=== PATIENT | male | born 1985 | race Caucasian/White ===

== ENCOUNTER 2024-03-20 16:37 | Outpatient (OUT) | payer OTHER, SELFPAY ==
[2024-03-20 16:52] LABS: Basophils Percent Auto 0.3 % (0.2-2.0); Eosinophils Absolute Auto 0.2 10^3/uL (0.0-0.7); Eosinophils Percent Auto 2.8 % (0.9-7.0); Hematocrit 46.2 % (42.0-54.0); Hemoglobin 15.7 g/dL (14.0-18.0); Immature Granulocytes Abs Auto 0.03 10^3/uL (0.00-0.03); Immature Granulocytes Pct Auto 0.5 % (0.0-0.5); Lymphocytes Absolute Auto 2.4 10^3/uL (1.2-3.8); Lymphocytes Percent Auto 39.7 % (20.5-60.0); Mean Corpuscular Hemoglobin 30.1 pg (25.9-34.0); Mean Corpuscular Volume 88.7 fL (80.0-94.0); Mean Platelet Volume 10.2 fL (9.5-13.5); Monocytes Absolute Auto 0.5 10^3/uL (0.3-0.8); Monocytes Percent Auto 8.3 % (1.7-12.0); Neutrophils Absolute Auto 2.9 10^3/uL (1.4-6.5); Neutrophils Percent Auto 48.4 % (43.0-75.0); Platelet Count 218 10^3/uL (150-450); Red Blood Count 5.21 10^6/uL (4.70-6.10); Red Cell Distribution Width 12.6 % (11.0-15.0)
[2024-03-20 17:23] LABS: Estimated Average Glucose 105 mg/dL; Glycohemoglobin A1C 5.3 % (4.5-6.2)
[2024-03-20 18:04] LABS: Alanine Aminotransferase 60 U/L (16-63); Albumin Globulin Ratio 1.1; Albumin Level 4.1 g/dL (3.4-5.0); Alkaline Phosphatase 87 U/L (46-116); Anion Gap 12.2; Aspartate Amino Transferase 31 U/L (15-37); BUN Creatinine Ratio 13.3; Bilirubin Total 0.5 mg/dL (0.2-1.0); Calcium 9.3 mg/dL (8.5-10.1); Carbon Dioxide 31.2 mmol/L (21.0-32.0); Chloride 102 mmol/L (98-107); Chol HDL Ratio 2.9; Cholesterol 187 mg/dL (<=200); Estimated GFR (African America >60 (>=60 mL/min/1.73m^2); Estimated GFR (Non-African Ame >60 (>=60 mL/min/1.73m^2); Globulin 3.6 g/dL; Glucose 83 mg/dL (74-106); HDL Cholesterol 64 mg/dL (40-60); Potassium 4.4 mmol/L (3.5-5.1); Sodium 141 mmol/L (136-145); TSH W/ REFLEX FT4 2.135 uIU/mL (0.358-3.740); Total Protein 7.7 g/dL (6.4-8.2); Triglycerides 46 mg/dL (<=150); VLDL CHOLESTEROL 9.2 mg/dL
== END 2024-03-20 16:38 | disposition home or self-care (01) ==
LOC: LAB 16:37
DX: Z00.00 Encounter for general adult medical examination without abnormal findings (principal)
CPT/HCPCS: 36415; 80053; 80061; 83036; 84443; 85025

== ENCOUNTER 2024-05-26 08:46 | Outpatient (OUT) | payer OTHER, SELFPAY ==
--- OUTSIDE RECORDS SUMMARY | 2024-05-26 09:08 | XMS_ITS | CCD ---
Author Organization [facility] Care Team Providers Care Tobacco Sweeper Name Role Phone Angie Rodriguez Unavailable SHAIKH Umer ZARCO Attending Unavailable SHAIKH Umer ZARCO Primary Care Unavailable SHAIKH Umer ZARCO Admitting Unavailable DR JULIO CESAR GARNER V Consulting Unavailable SHAIKH Umer ZARCO Consulting Unavailable Phill Traylor MD Primary Care Provider Beckford BRAKESHOE REPAIRER, Zuly Unavailable Bettye BRAKESHOE REPAIRER, Mariangel Unavailable Beckford BRAKESHOE REPAIRER, Zuly Unavailable Cathie Higgins DO Unavailable KEV BUI Attending Unavailable BECKFORD, ZULY Referring Unavailabl e BRINKKEV Attending Unavailable BECKFORD, ZULY Referring Unavailabl e BRKEV WELDON Attending Unavailable BECKFORD, ZULY Referring Unavailabl e BRKEV WELDON Attending Unavailable BECKFORD, ZULY Referring Unavailabl e BRKEV WELDON Attending Unavailable BECKFORD, ZULY Referring Unavailabl e BRINKKEV Attending Unavailable BECKFORD, ZULY Referring Unavailabl e CATHIE HIGGINS Attending Unavailable BECKFORD, ZULY Referring Unavailabl e CHITO CALDERON Attending Unavailable BECKFORD, ZULY Referring Unavailabl e BRINK, KEV Attending Unavailable BECKFORD, ZULY Referring Unavailabl e BECKFORD, ZULY Attending Unavailabl e SADIQ TABARES Attending Unavailable BECKFORD, ZULY Referring Unavailabl e Allergies Allergy Classification Reported Allergen(s) Allergy Type Date of Onset Reaction(s) Facility (20 sources) Cefaclor Drug Allergy 5 unknown [facility] Other (20 sources) Amoxicillin Drug Allergy 5 [facility] (20 sources) Azithromycin Drug Allergy 5 [facility] Medications Current Medications Medication Drug Class(es) Dates Sig (Normalized) Sig (Original) [place] (No Known Home Meds) (1 source) Start: 01-18-2024 [place] (No Known Home Meds) Active January 18, 2024 12:00am valACYclovir 1000 mg oral tablet (1 source) Herpesvirus Nucleoside Analog DNA Polymerase Inhibitor, Herpes Simplex Virus Nucleoside Analog DNA Polymerase Inhibitor, Herpes Zoster Virus Nucleoside Analog DNA Polymerase Inhibitor Start: 03-06-2021 take 1 tablet by mouth every twelve hours valACYclovir HCl 1 GM 1 tablet Orally twice a day for 10 day(s) Mar, Active Completed/Discontinued Medications Medication Drug Class(es) Dates Sig (Normalized) Sig (Original) azithromycin 250 mg oral tablet (1 source) Macrolide Antimicrobial Start: 11-03-2023 End: 01-18-2024 Azithromycin 250 mg tablet Discontinued 0 PO .COMPLEX 6 November 02, 2023 11:00pm January 18, 2024 12:01pm For 250 mg dose pack: take 500 mg today (day 1), then 250 mg for 4 days (days 2-5) PO Problems Active Problems Problem Classification Problem Date Documented Da te Episodic/Chronic Chronic obstructive pulmonary disease and bronchiectasis (4 sources) Bronchitis; Translations: [Bronchitis, not specified as acute or chronic] 11-03-2023 Episodic Other lower respiratory disease (20 sources) Apnea; Translations: [Apnea, not elsewhere classified] Onset: 03-13-2024 03-13-2024 Episodic Other lower respiratory disease (2 sources) Snoring; Translations: [Snoring] 05-06-2024 Episodic Other nervous system disorders (2 sources) Circadian rhythm sleep disorder of shift work type; Translations: [Circadian rhythm sleep disorder, shift work type] 05-06-2024 Chronic Other upper respiratory disease (20 sources) Seasonal allergy; Translations: [Other seasonal allergic rhinitis] Onset: 03-13-2024 03-13-2024 Chronic Residual codes; unclassified (4 sources) Obstructive sleep apnea syndrome; Translations: [Obstructive sleep apnea (adult) (pediatric)] 05-06-2024 Chronic Residual codes; unclassified (2 sources) Hypersomnia; Translations: [Hypersomnia, unspecified] 05-06-2024 Chronic Residual codes; unclassified (2 sources) Sleep deprivation; Translations: [Sleep deprivation] 05-06-2024 Episodic Spondylosis; intervertebral disc disorders; other back problems (1 source) Spondylosis without myelopathy or radiculopathy, lumbar region; Translations: [SPONDYLS W/O MYELO-/RADICULOP LUMB] Onset: 07-06-2022 Chronic Spondylosis; intervertebral disc disorders; other back problems (20 sources) Low back pain; Translations: [Lumbar back pain] Onset: 03-13-2024 03-13-2024 Episodic Unclassified (3 sources) LOW BACK PAIN, UNSPECIFIED; Translations: [LOW BACK PAIN, UNSPECIFIED] Onset: 07-06-2022 Viral infection (1 source) Genital herpes simplex; Translations: [Herpesviral infection of urogenital system, unspecified] 01-18-2024 Chronic Past or Other Problems Problem Classification Problem Date Documented Da te Episodic/Chronic Residual codes; unclassified (1 source) High risk heterosexual behavior Onset: 03-06-2021 Resolved: 03-06-2021 Episodic Unclassified (1 source) LOW BACK PAIN, UNSPECIFIED; Translations: [LOW BACK PAIN, UNSPECIFIED] Onset: 06-30-2022 Viral infection (1 source) Herpesviral infection, unspecified Onset: 03-06-2021 Resolved: 03-06-2021 Episodic Results Test Name Value Interpretation Reference Range Facil ity ALL CBC WITH AUTO DIFFon BASOPHILS ABSOLUTE AUTO 0 [facility] Basophils/100 WBC (Bld) 0.3 % 0.2 - 2.0 % [facility] Eosinophils/100 WBC (Bld) 2.8 % 0.9 - 7.0 % [facility] Erythrocyte distribution width (RBC) [Ratio] 12.6 % 11.0 - 15.0 % [facility] Hematocrit (Bld) [Volume fraction] 46.2 % 42.0 - 54.0 % [facility] Hemoglobin (Bld) [Mass/Vol] 15.7 g/dL 14.0 - 18.0 g/dL [facility] IMMATURE GRANULOCYTES ABS AUTO 0.03 [facility] Immature granulocytes/100 WBC (Bld) 0.5 % 0.0 - 0.5 % [facility] LYMPHOCYTES ABSOLUTE AUTO 2.4 [facility] Lymphocytes/100 WBC (Bld) 39.7 % 20.5 - 60.0 % [facility] MCH (RBC) [Entitic mass] 30.1 pg 25.9 - 34.0 pg [facility] MCHC (RBC) [Mass/Vol] 34 g/dL 29.9 - 35.2 g/dL [facility] MCV (RBC) [Entitic vol] 88.7 fL 80.0 - 94.0 fL [facility] MONOCYTES ABSOLUTE AUTO 0.5 [facility] Monocytes/100 WBC (Bld) 8.3 % 1.7 - 12.0 % [facility] NEUTROPHILS ABSOLUTE AUTO 2.9 [facility] Neutrophils/100 WBC (Bld) 48.4 % 43.0 - 75.0 % [facility] Platelet mean volume (Bld) [Entitic vol] 10.2 fL 9.5 - 13.5 fL [facility] TBH EO # 0.2 [facility] TBH PLT 218 [facility] RBC 5.21 [facility] WBC 6 [facility] XR LSPINE 2_3 VIEWSon 2022 XR LSPINE 2_3 VIEWS EXAMINATION: XR LSPINE 2_3 VIEWS HISTORY: Low back pain COMPARISON: No relevant comparison available. FINDINGS: BONES: Mild widespread spondylosis. No visible acute bony abnormality. DISC SPACES: Normal. No significant disc height narrowing, subluxation, or endplate abnormality. PARASPINOUS: Negative. No paraspinous abnormality is seen. OTHER: Moderate stool in the right colon. IMPRESSION: Mild spondylosis Electronically authenticated by: JULIO CESAR GARNER Date: 2022-06-30 11:26 Normal [facility] Vital Signs Date Time Vital Sign Value Performing Clinician Facility 05-06-2024 08:53-0500 Body height 167.6 cm Cathie [employer] Work Phone: [facility] 05-06-2024 08:53-0500 Body mass index (BMI) [Ratio] 25.66 kg/m2 Cathie Sloan DO Work Phone: [facility] 05-06-2024 08:53-0500 Body weight 72.12 kg Cathie Sloan DO Work Phone: [facility] 05-06-2024 08:53-0500 Diastolic blood pressure 86 mm[Hg] Cathie Sloan DO Work Phone: [facility] 05-06-2024 08:53-0500 Systolic blood pressure 128 mm[Hg] Cathie Sloan DO Work Phone: [facility] 03-13-2024 09:20-0500 Body height 167.6 cm Zuly Beckford BRAKESHOE REPAIRER Work Phone: [facility] 03-13-2024 09:20-0500 Body mass index (BMI) [Ratio] 25.34 kg/m2 Zuly Beckford BRAKESHOE REPAIRER Work Phone: [facility] 03-13-2024 09:20-0500 Body temperature 97.11 [degF] Zuly Beckford BRAKESHOE REPAIRER Work Phone: [facility] 03-13-2024 09:20-0500 Body weight 71.22 kg Zuly Beckford BRAKESHOE REPAIRER Work Phone: [facility] 03-13-2024 09:20-0500 Diastolic blood pressure 60 mm[Hg] Zuly Beckford BRAKESHOE REPAIRER Work Phone: [facility] 03-13-2024 09:20-0500 Heart rate 71 /min Zuly Beckford BRAKESHOE REPAIRER Work Phone: [facility] 03-13-2024 09:20-0500 Respiratory rate 18 /min Zuly Beckford BRAKESHOE REPAIRER Work Phone: [facility] 03-13-2024 09:20-0500 SaO2% (BldA) [Mass fraction] 97 % Zuly Beckford BRAKESHOE REPAIRER Work Phone: [facility] 03-13-2024 09:20-0500 Systolic blood pressure 112 mm[Hg] Zuly Beckford BRAKESHOE REPAIRER Work Phone: [facility] 01-18-2024 12:04-0500 Body height 167.64 cm [facility] 01-18-2024 12:04-0500 Body mass index (BMI) [Ratio] 34 kg/m2 [facility] 01-18-2024 12:04-0500 Body temperature 97.6 [degF] [facility] 01-18-2024 12:04-0500 Body weight 95.7 kg [facility] 01-18-2024 12:04-0500 Diastolic blood pressure 53 mm[Hg] [facility] 01-18-2024 12:04-0500 Heart rate 66 /min [facility] 01-18-2024 12:04-0500 Respiratory rate 18 /min [facility] 01-18-2024 12:04-0500 SaO2% (BldA) [Mass fraction] 99 % [facility] 01-18-2024 12:04-0500 Systolic blood pressure 114 mm[Hg] [facility] 11-03-2023 14:45-0400 Body height 167.64 cm [facility] 11-03-2023 14:45-0400 Body mass index (BMI) [Ratio] 25 kg/m2 [facility] 11-03-2023 14:45-0400 Body temperature 97.7 [degF] [facility] 11-03-2023 14:45-0400 Body weight 70.36 kg [facility] 11-03-2023 14:45-0400 Diastolic blood pressure 64 mm[Hg] [facility] 11-03-2023 14:45-0400 Heart rate 87 /min [facility] 11-03-2023 14:45-0400 Respiratory rate 18 /min [facility] 11-03-2023 14:45-0400 SaO2% (BldA) [Mass fraction] 96 % [facility] 11-03-2023 14:45-0400 Systolic blood pressure 100 mm[Hg] [facility] 03-06-2021 10:15-0500 Body height 167.64 cm Angie Rodriguez Other [facility] 03-06-2021 10:15-0500 Body mass index (BMI) [Ratio] 23.43 kg/m2 Angie Rodriguez Other [facility] 03-06-2021 10:15-0500 Body temperature 98.2 [degF] Angie Rodriguez Other [facility] 03-06-2021 10:15-0500 Body weight 65.86 kg Angie Rodriguez Other [facility] Other 03-06-2021 10:15-0500 Diastolic blood pressure 62 mm[Hg] Angie Rodriguez Other [facility] Other 03-06-2021 10:15-0500 Respiratory rate 18 /min Angie Rodriguez Other [facility] Other 03-06-2021 10:15-0500 SaO2% (BldA) [Mass fraction] 98 % Angie Rodriguez Other [facility] Other 03-06-2021 10:15-0500 Systolic blood pressure 113 mm[Hg] Angie Rodriguez Other [facility] Other Encounters Encounter Date Encounter Type Care Provider Facility Start: 05-13-2024 End: 05-13-2024 ambulatory KEV BUI Not Available Start: 05-07-2024 End: 05-07-2024 ambulatory Chito Calderon [facility] Comment on above: Lumbar back pain (Pr imary Dx); Lumbar paraspinal muscle spasm Start: 05-06-2024 End: 05-06-2024 Bamboo flowsheet Cathie Sloan DO Work Phone: [facility] Start: 05-06-2024 End: 05-06-2024 Bamboo flowsheet Cathie Sloan DO Work Phone: [facility] Start: 05-06-2024 End: 05-06-2024 Office consultation new/estab patient 60 min Cathie Sloan DO Work Phone: [facility] Comment on above: Snoring (Primary Dx) ; SANDRA (obstructive sleep apnea); Shift work sleep disorder; Hypersomnia; Sleep deprivation Start: 05-06-2024 End: 05-06-2024 ambulatory CATHIE HIGGINS Not Available Start: 05-05-2024 End: 05-05-2024 Bamboo flowsheet Kev Brink [facility] Start: 05-05-2024 End: 05-05-2024 Bamboo flowsheet Kev Brink [facility] Start: 05-05-2024 End: 05-05-2024 ambulatory KEV BRINK Not Available Start: 04-29-2024 End: 04-29-2024 Bamboo flowsheet Kev Brink [facility] Start: 04-29-2024 End: 04-29-2024 Bamboo flowsheet Kev Brink [facility] Start: 04-29-2024 End: 04-29-2024 ambulatory Kev Brink [facility] Comment on above: Lumbar back pain (Pr imary Dx); Lumbar paraspinal muscle spasm Start: 04-22-2024 End: 04-22-2024 Bamboo flowsheet Kev Brink [facility] Start: 04-22-2024 End: 04-22-2024 Bamboo flowsheet Kev Brink [facility] Start: 04-22-2024 End: 04-22-2024 ambulatory Kev Brink [facility] Comment on above: Lumbar back pain (Pr imary Dx); Lumbar paraspinal muscle spasm Start: 2024 End: 2024 Bamboo flowsheet Kev Brink [facility] Start: 2024 End: 2024 Bamboo flowsheet Kev Bui [facility] Start: 2024 End: 2024 ambulatory Kev Bui [facility] Comment on above: Lumbar back pain (Pr imary Dx); Lumbar paraspinal muscle spasm Start: 04-08-2024 End: 04-08-2024 Bamboo flowsheet Kev Bui [facility] Start: 04-08-2024 End: 04-08-2024 Bamboo flowsheet Kev Bui [facility] Start: 04-08-2024 End: 04-08-2024 ambulatory Kev Bui [facility] Comment on above: Lumbar back pain (Pr imary Dx); Lumbar paraspinal muscle spasm Start: 04-01-2024 End: 04-01-2024 Bamboo flowsheet Kev Bui [facility] Start: 04-01-2024 End: 04-01-2024 Bamboo flowsheet Kev Bui [facility] Start: 04-01-2024 End: 04-01-2024 ambulatory Kev Bui [facility] Comment on above: Lumbar back pain (Pr imary Dx); Lumbar paraspinal muscle spasm Start: 03-20-2024 End: 03-20-2024 [facility] Result Encounter Zuly Beckford BRAKESHOE REPAIRER Work Phone: [facility] Unsolicited Start: 03-20-2024 End: 03-20-2024 [facility] Result Encounter Zuly Beckford BRAKESHOE REPAIRER Work Phone: [facility] Unsolicited Start: 03-19-2024 End: 03-19-2024 Bamboo flowsheet Sadiq Tabares PT Work Phone: [facility] Start: 03-19-2024 End: 03-19-2024 Bamboo flowsheet Sadiq Tabares PT Work Phone: [facility] Start: 03-19-2024 End: 03-19-2024 ambulatory Sadiq Tabares PT Work Phone: [facility] Comment on above: Lumbar paraspinal mu scle spasm (Primary Dx); Lumbar back pain Start: 03-13-2024 End: 03-13-2024 Bamboo flowsheet Zuly Beckford BRAKESHOE REPAIRER Work Phone: [facility] Start: 03-13-2024 End: 03-13-2024 Bamboo flowsheet Zuly Beckford BRAKESHOE REPAIRER Work Phone: [facility] Start: 03-13-2024 End: 03-13-2024 ambulatory ZULY BECKFORD Not Available Start: 03-13-2024 End: 03-13-2024 Patient encounter status Zuly Beckford BRAKESHOE REPAIRER Work Phone: [facility] Start: 03-13-2024 End: 03-13-2024 Periodic preventive med est patient 40-64yrs Zulychiara RochaBeckford BRAKESHOE REPAIRER Work Phone: [facility] Comment on above: Wellness examination (Primary Dx); Lumbar back pain; Apnea Start: 01-18-2024 End: 01-18-[address] [facility] Work Phone: Start: 01-18-2024 End: 01-18-2024 Patient encounter procedure Pending Sale To [facility] [place] Work Phone: Start: 11-03-2023 End: 11-03-[address] [facility] Work Phone: Start: 11-03-2023 End: 11-03-2023 Patient encounter procedure Pending Sale To [facility] [place] Work Phone: Start: 06-30-2022 End: 07-01-2022 ambulatory SHAIKH Umer ZARCO Facility: Start: 03-06-2021 End: 03-06-2021 ambulatory Angie Rodriguez Other [facility] Other Start: 03-06-2021 Office outpatient vi sit 15 minutes Angie Rodriguez [facility] [place] Procedures Date Procedure Procedure Detail Performing Clinician Start: 03-20-2024 ALL CBC WITH AUTO DIFF Zuly Beckford BRAKESHOE REPAIRER Work Phone: Plan of Treatment Date Care Activity Detail Author Start: 09-10-2024 End: 09-10-2024 Patient encounter procedure 09/10/2024 9:00 AM EDT Office Visit [facility] [address] [place] [id number] Mariangel Wen NP [address] [place] [address] [facility] Start: 07-08-2024 End: 07-08-2024 Patient encounter procedure 07/08/2024 9:00 AM EDT Office Visit [facility] [address] [place] [address] Nery Fitch NP [address] [place], [place] [facility] Start: 05-13-2024 End: 05-13-2024 ambulatory 05/13/2024 8:30 AM EDT Treatment [facility] [address] [place] [id number] Kev Bui, JOSHUA [facility] Start: 05-07-2024 End: 05-07-2024 ambulatory [facility] Start: 05-06-2024 End: 05-06-2025 Polysomnography [facility] Routine SANDRA (obstructive sleep apnea) Expected: 05/06/2024 (Approximate), Expires: 05/06/2025 [facility] Work Phone: Comment on above: Expected: 05/06/2024 (Approximate), Expires: 05/06/2025 Start: 05-06-2024 End: 05-06-2024 Patient encounter procedure [facility] Comment on above: Apnea Start: 05-05-2024 End: 03-03-2025 ambulatory [facility] Start: 04-29-2024 End: 04-29-2024 ambulatory 04/29/2024 8:30 AM EST Treatment [facility] [address] [place] [address] Kev Bui, [facility] Start: 04-22-2024 End: 04-22-2024 ambulatory 04/22/2024 8:30 AM EST Treatment [facility] [address] [place] [address] Kev Bui [facility] Start: 2024 End: 2024 ambulatory 2024 8:30 AM EST Treatment [facility] [address] [place] [address] Sadiq Tabares, PT [address] [place] [address] [facility] Start: 04-08-2024 End: 04-08-2024 ambulatory 04/08/2024 8:30 AM EST Treatment [facility] [address] [place] [address] Kev Bui, [facility] Start: 03-19-2024 End: 03-19-2024 ambulatory 03/19/2024 8:30 AM EST Evaluation [facility] [address] [place] [address] Sadiq Tabares, PT [address] [place] [address] [facility] Start: 03-13-2024 End: 03-13-2025 CBC W Auto Differential panel - Blood CBC and differential Lab Routine Wellness examination Expected: 03/13/2024 (Approximate), Expires: 03/13/2025 [facility] Comment on above: Expected: 03/13/2024 (Approximate), Expires: 03/13/2025 Start: 03-13-2024 End: 03-13-2025 Comprehensive metabolic 2000 panel - Serum or Plasma Comprehensive metabolic panel Lab Routine Wellness examination Expected: 03/13/2024 (Approximate), Expires: 03/13/2025 [facility] Comment on above: Expected: 03/13/2024 (Approximate), Expires: 03/13/2025 Start: 03-13-2024 End: 03-13-2025 Hemoglobin A1c/Hemoglobin.total in Blood Hemoglobin A1c Lab Routine Wellness examination Expected: 03/13/2024 (Approximate), Expires: 03/13/2025 [facility] Comment on above: Expected: 03/13/2024 (Approximate), Expires: 03/13/2025 Start: 03-13-2024 End: 03-13-2025 Lipid 1996 panel - Serum or Plasma Lipid panel Lab Routine Wellness examination Expected: 03/13/2024 (Approximate), Expires: 03/13/2025 [facility] Comment on above: Expected: 03/13/2024 (Approximate), Expires: 03/13/2025 Start: 03-13-2024 End: 03-13-2025 TSH W/REFLEX TO FT4 TSH W/REFLEX TO FT4 Lab Routine Wellness examination Expected: 03/13/2024 (Approximate), Expires: 03/13/2025 [facility] Work Phone: Comment on above: Expected: 03/13/2024 (Approximate), Expires: 03/13/2025 Start: 11-04-2023 Influenza vaccination Influenza Vacc ine (#1) [facility] Payers Date Payer Category Payer Private Health Insurance [id number] 1985 Unknown [id number] 2.16.84 [id number] 1983 Unknown [id number] 2.16.84 [id number] 1983 Unknown [id number] 2.16.84 [id number] 1983 Unknown [id number] 2.16.84 [id number] 1983 Unknown [id number] 2.16.84 [id number] 1983 Unknown [id number] 2.16.84 [id number] 1983 Unknown [id number] 2.16.84 [id number] 1983 Unknown [id number] 2.16.84 [id number] 1983 Unknown [id number] 2.16.84 [id number] 1983 Unknown [id number] 2.16.84 [id number] 1983 Unknown [id number] 2.16.84 [id number] 1983 Unknown [id number] 2.16.84 [id number] 1959 Unknown [id number] Unknown [id number] 2. [id number] Social History Date Type Detail Facility Sex Assigned At [facility] Start: 1985 Sex Assigned At Male F [facility] Tobacco smoking stat RUSTIS Unknown if ever smoked [facility] Start: 01-18-2024 Sex Male (finding) [facility] Start: 1985 Sex assigned at Not on file N [facility] Clinical Notes 03-06-2021 to 05-06-2024 Cathie Higgins DO - 05/06/2024 9:00 AM Robinson Beckford, BRAKESHOE REPAIRER - 03/13/2024 9:32 AM Robinson Beckford, BRAKESHOE REPAIRER - 03/13/2024 9:32 AM Robinson Beckford, BRAKESHOE REPAIRER - 03/13/2024 9:00 AM EST Note Date & Type Note Facility 05-06-2024 History of Presen t illness Narrative Images from the original note were not included. No chief complaint on file. Subjective Noé Ball, 39 y.o., male new patient here in neurological consultation at the request of Zuly Beckford CNP for sleep apnea. HPI Noé states that his informed him that he stops breathing when he is sleeping. This has prompted him to schedule a consultation for possible sleep apnea. He feels that he sleeps well. He works third shift. He will sleep 10 am - 4 am. He will sometimes switch his schedule when he has the weekend off. He will sleep more time. HE does not feel like he hits wall mid-day. He is not aware of any family history of SANDRA Sleep ND Patient Symptoms Snores: Yes, according to . Wakes gasping for breath: No Dozes off if inactive: No Dozes off with activity: No Wakes a lot through the night: No Witnessed episodes of apnea: Yes, per . Bedtime: 10am He works third shift. Is it hard or easy to fall asleep: Easy Morning wake time: 4pm Do you feel rested: Yes Takes naps: No Feels better after napping: N/A Sleepwalk: No Sleeptalk: No Vivid Dreams: No Acts out dreams: No Sleep related hallucinations: No Sleep paralysis: No Cataplexy: No Restless Leg: No Kicking/Jerking at night: No TV on while sleepin/50 sometimes on sometimes off Smoke before bed: NO Caffeine within 3 hours before bed: Yes CV exercise: Walking No past medical history on file. Past Surgical History: Procedure Laterality Date TONSILLECTOMY No family history on file. Social History Tobacco Use Smoking status: Not on file Smokeless tobacco: Not on file Substance Use Topics Alcohol use: Not on file Allergies: Azithromycin, Ceclor [cefaclor], and Polymox [amoxicillin] General: No fever or chills HEENT: No nasal congestion or runny nose Pulmonary: No shortness of breath or cough Cardiovascular: No chest pain or palpitations GI: No nausea or vomiting : No dysuria or hematuria Musculoskeletal: No new aches or pains or muscle weakness Infectious: no recurrent fevers or infections Dermatologic: No rashes or skin lesions Neurologic: No new headaches or dizziness Vitals: 05/06/24 0853 BP: 128/86 Body mass index is 25.66 kg/m . weight: 159 lb Neurologic exam: General: Normal body habitus, cooperative, pleasant Mental status: Awake, alert to person, place and time. Recent and remote memory are intact. Attention and concentration are normal. Fund of knowledge is appropriate for level of education. HEENT: NC/AT Cranial nerves: CN II: Visual haywood full to confrontation. No loss of vision CN III, IV, : pupils equal round and reactive to light. Extraocular movements intact. No ptosis present. CN V: Facial sensation is normal. CN VII: Full and symmetric facial movement. CN VIII: Hearing is normal CN IX and X: Palate elevates symmetrically. CN XI: Shoulder shrug is normal bilaterally. CN XII: Tongue is midline without atrophy or fasciculation. Speech: Clear and fluent no aphasia or dysarthria Pronator drift: Negative bilateral upper extremity Coordination: Intact, no signs of dysmetria Good finger to nose and rapid alternating movements Sensory: Sensation is intact to light, temperature and vibratory touch throughout four extremities. Motor: LUE 5/5 RUE 5/5 LLE 5/5 RLE 5/5 Tone: Physiologic, no tremor, bradykinesia or rigidity DTR: Bilateral Biceps 2/4 Bilateral BR 2/4 Bilateral Patellar 2/4 No spasticity Gait: Normal to casual gait Romberg's Negative Review and summary of old records: Assessment/Plan Diagnoses and all orders for this visit: Snoring SANDRA (obstructive sleep apnea) - Ambulatory referral to Neurology - Polysomnography; Future Shift work sleep disorder Hypersomnia Sleep deprivation 39-year-old male who is having witnessed episodes of apnea per his at home. He does have some mild hypersomnia. He has some snoring. He has a narrow oropharyngeal opening. All of this is consistent with an obstructive sleep apnea. He would benefit from a polysomnogram in order to assess for underlying obstructive sleep apnea. 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 He will change this sleep time some on the weekends but more to try to get more hours of sleep. He needs to get more hours regularly not just on his weekends off. Plan We will try to get a polysomnogram so we can assess his quality of sleep sleep apnea and periodic limb movements. Counseled on set sleep cycles and adequate hours of sleep He should not be switching his sleep cycle /times over the weekend We will decide on the next step in treatment once we have his sleep study. The diagnosis was all discussed with the patient. All questions were answered and they agreed with the treatment plan. Patient will call if there are any new issues or questions. Pt has been fully educated on their diagnosis, treatment options, follow up plan, and return instructions Return to clinic: 2 months documented in this encounter [facility] 03-13-2024 History of Presen t illness Narrative Associated Problem(s): Lumbar back pain Chronic lumbar back pain intermittently 1-2 times per month. Reports he had imaging 5 years ago. Was negative. Was ordered PT but did not follow through Would like to try physical therapy now. Order placed. Associated Problem(s): Wellness examination I have reviewed Ht/Wt/BMI, I have reviewed recommended vaccines for patient's age, as well as all recommended screenings I have reviewed available care everywhere notes as well. I have recommended eating a balanced diet, as well as activity as chronic conditions allow It is recommended that the patient have a yearly eye exam, as well as twice a year dental exams Fu in this office for wellness on a yearly basis Diet: Eat three meals per day. Breakfast, lunch, and dinner. Avoid snacking. Avoid eating after 5/6 pm. Daily protein GOAL 35% of your intake; 30g per meal. Daily calorie GOAL 1,800-2,000 per day. Consider tracking your food intake on MyFtinessPal or LoseIt Water: Increase water intake; GOAL 64-80oz of water per day. Exercise: Increase activity. GOAL 30 minutes, 5 days per week. START SLOW. Start with 5 minutes, 5 days per week. Then increase to 10 days, 5 days per week. Continue to increase until you reach the goal. Increase steps; GOAL 10,000 steps per day. Be sure to get adequate sleep; GOAL 6-8 hours of sleep per night. Images from the original note were not included. Subjective Patient ID: Noé Ball is a 38 y.o. male who presents for Follow-up (Check up/) and Cough (Sick about a month ago, lingering cough). HPI Chronic lumbar back pain intermittently 1-2 times per month. Reports he had imaging 5 years ago. Was negative. Was ordered PT but did not follow through Would like to try physical therapy now. Order placed. Enjoys reading. Hiking. Video games. Diet: Strict Keto diet. No fast food Water: 32 ounces per day Exercise: Minimally. Walking. Sleep: 6 hours per night. reports he has apneic periods during sleep. Snores. Denies waking up gasping for air. Review of Systems Constitutional: Negative for activity change, appetite change, chills, diaphoresis, fatigue, fever and unexpected weight change. HENT: Negative for congestion, ear pain, rhinorrhea, sinus pressure, sinus pain, sneezing, sore throat, trouble swallowing and voice change. Eyes: Negative for visual disturbance. Respiratory: Negative for cough, chest tightness, shortness of breath and wheezing. Cardiovascular: Negative for chest pain, palpitations and leg swelling. Gastrointestinal: Negative for abdominal distention, abdominal pain, blood in stool, constipation, diarrhea and vomiting. Genitourinary: Negative for decreased urine volume, dysuria, flank pain, frequency, hematuria and urgency. Musculoskeletal: Positive for back pain. Negative for arthralgias, gait problem, joint swelling and myalgias. Skin: Negative for rash. Neurological: Negative for dizziness, tremors, syncope, weakness, light-headedness and headaches. Psychiatric/Behavioral: Negative for decreased concentration and suicidal ideas. The patient is not nervous/anxious. Hematological: Does not bruise/bleed easily. Endocrine: Negative for cold intolerance, heat intolerance, polydipsia, polyphagia and polyuria. Objective Physical Exam Vitals reviewed. Constitutional: Appearance: Normal appearance. HENT: Right Ear: Tympanic membrane normal. Left Ear: Tympanic membrane normal. Nose: Nose normal. Mouth/Throat: Mouth: Mucous membranes are moist. Pharynx: Oropharynx is clear. Eyes: Pupils: Pupils are equal, round, and reactive to light. Cardiovascular: Rate and Rhythm: Normal rate and regular rhythm. Pulses: Normal pulses. Heart sounds: Normal heart sounds. Pulmonary: Effort: Pulmonary effort is normal. Breath sounds: Normal breath sounds. Abdominal: General: Abdomen is flat. Bowel sounds are normal. Palpations: Abdomen is soft. Musculoskeletal: General: Normal range of motion. Skin: General: Skin is warm and dry. Capillary Refill: Capillary refill takes less than 2 seconds. Neurological: Mental Status: He is alert and oriented to person, place, and time. Psychiatric: Mood and Affect: Mood normal. Behavior: Behavior normal. Assessment/Plan Problem List Items Addressed This Visit Lumbar back pain Chronic lumbar back pain intermittently 1-2 times per month. Reports he had imaging 5 years ago. Was negative. Was ordered PT but did not follow through Would like to try physical therapy now. Order placed. Relevant Orders Ambulatory referral to Physical Therapy Wellness examination - Primary I have reviewed Ht/Wt/BMI, I have reviewed recommended vaccines for patient's age, as well as all recommended screenings I have reviewed available care everywhere notes as well. I have recommended eating a balanced diet, as well as activity as chronic conditions allow It is recommended that the patient have a yearly eye exam, as well as twice a year dental exams Fu in this office for wellness on a yearly basis Diet: Eat three meals per day. Breakfast, lunch, and dinner. Avoid snacking. Avoid eating after 5/6 pm. Daily protein GOAL 35% of your intake; 30g per meal. Daily calorie GOAL 1,800-2,000 per day. Consider tracking your food intake on MyFtinessPal or LoseIt Water: Increase water intake; GOAL 64-80oz of water per day. Exercise: Increase activity. GOAL 30 minutes, 5 days per week. START SLOW. Start with 5 minutes, 5 days per week. Then increase to 10 days, 5 days per week. Continue to increase until you reach the goal. Increase steps; GOAL 10,000 steps per day. Be sure to get adequate sleep; GOAL 6-8 hours of sleep per night. Relevant Orders TSH W/REFLEX TO FT4 Lipid panel Hemoglobin A1c Comprehensive metabolic panel CBC and differential Apnea Relevant Orders Ambulatory referral to Neurology documented in this encounter [facility] 03-13-2024 Instructions Zuly Beckford NP - 03/13/2024 9:00 AM EST Referral sent to Dr. Higgins for Sleep Study- they will call you. If you don't hear from them in 2 weeks, call my office! FASTING labs ordered. Nothing to eat or drink for 12 hours prior to blood draw. Water and black coffee ok. documented in this encounter [facility] 11-03-2023 Evaluation note Diagnosis Onset Date Resolution Bronchitis acute November 02, 024 2:40pm [facility] Work Phone: 1(888) 637-510601-02-2022 Evaluation note* Encounter Date Diagnosis Assessment Notes Treatment Notes Treatment Clinical Notes Mar, Herpes (ICD-10 - B00.9) Take medication as directed. Discussed follow up with primary care for blood work is best way to find out if positive for antibodies. Will test for other STI's just in case. Mar, High risk heterosexual behavior (ICD-10 - Z72.51) [facility] Other Evaluation note* Diagnosis Onset Date Resolution Status Bronchitis acute [facility] Work Phone: Evaluation note* Diagnosis Wellness examination- Primary Lumbar back pain Lumbago Apnea documented in this encounter [facility]* Diagnosis Wellness examination- Primary Lumbar back pain Lumbago Apnea Lumbar paraspinal muscle spasm- Primary Other symptoms referable to back Lumbar back pain Lumbago documented [facility]* Diagnosis Wellness examination- Primary Lumbar back pain Lumbago Apnea Lumbar back pain- Primary Lumbago Lumbar paraspinal muscle spasm Other symptoms referable to back documented in this encounter [facility]* Diagnosis Wellness examination- Primary Lumbar back pain Lumbago Apnea Lumbar back pain- Primary Lumbago Lumbar paraspinal muscle spasm Other symptoms referable to back documented [facility] encounter [facility]* Diagnosis Wellness examination- Primary Lumbar back pain Lumbago Apnea Lumbar back pain- Primary Lumbago Lumbar paraspinal muscle spasm Other symptoms referable to back documented [facility]* Diagnosis Wellness examination- Primary Lumbar back pain Lumbago Apnea Lumbar back pain- Primary Lumbago Lumbar paraspinal muscle spasm Other symptoms referable to back documented [facility]* Diagnosis Wellness examination- Primary Lumbar back pain Lumbago Apnea Lumbar back pain- Primary Lumbago Lumbar paraspinal muscle spasm Other symptoms referable to back documented [facility]* Diagnosis Wellness examination- Primary Lumbar back pain Lumbago Apnea Snoring- Primary Other dyspnea and respiratory abnormality SANDRA (obstructive sleep apnea) Obstructive sleep apnea (adult) (pediatric) Shift work sleep disorder Circadian rhythm sleep disorder, shift work type Hypersomnia Hypersomnia, unspecified Sleep deprivation Problems related to lack of adequate sleep documented [facility]* Diagnosis Wellness examination- Primary Lumbar back pain Lumbago Apnea Lumbar back pain- Primary Lumbago Lumbar paraspinal muscle spasm Other symptoms referable to back documented in this encounter [facility] general Narrative - Reported* Type Description Date Surgical History tonsillectomy [facility] [employer] Other Reason for visit Narrative* Rehabilitation - Outpatient (Routine) - Pending Review Specialty Diagnoses / Procedures Referred By Tari massey Referred To Contact Physical Therapy Diagnoses Lumbar back pain Procedures [place] OFFICE/OUTPATIENT [facility] 60 MINUTES Zuly Beckford, ASAD [address] [place] [address] Phone: tel: fax: Sadiq Tabares, PT [address] [address] Phone: tel: fax: Referral ID Status Reason Start Date Expiration Date Visits Requested Visits Authorized [id number] Pending Review Specialty Services Required 03/19/2024 09/09/2024 1 2 [facility] HealthcareReason for visit Narrative* Rehabilitation - Outpatient (Routine) - Authorized Specialty Diagnoses / Procedures Referred By Tari massey Referred To Contact Physical Therapy Diagnoses Lumbar back pain Procedures [place] OFFICE/OUTPATIENT [facility] 60 MINUTES Zuly Beckford NP [address] [place] [address] Phone: tel: fax: Sadiq Tabares, PT [address] [address] Phone: tel: fax: Referral ID Status Reason Start Date Expiration Date Visits Requested Visits Authorized [id number] Authorized Specialty Services Required 03/19/2024 05/17/2024 9 9 [facility] Narrative* Rehabilitation - Outpatient (Routine) - Authorized Specialty Diagnoses / Procedures Referred By Tari t Referred To Contact Physical Therapy Diagnoses Lumbar back pain Procedures [place] OFFICE/OUTPATIENT [facility] 60 MINUTES Zuly Beckford NP [address] [place] [address] fax: Sadiq Tabares, PT [address] [address] Phone: tel: fax: Referral ID Status Reason Start Date Expiration Date Visits Requested Visits Authorized [id number] Authorized Specialty Services Required 03/19/2024 05/17/2024 9 9 [facility] Narrative* Consultation (Routine) - Closed Specialty Diagnoses / Procedures Referred By Tari t Referred To Contact Neurology Diagnoses Apnea Procedures [place] OFFICE[facility]OUTPATIENT [facility] 60 MINUTES Zuly Beckford NP [address] [place] [address] fax: Cathie Higgins, [address] [place] [address] Phone: tel: fax: Referral ID Status Reason Start Date Expiration Date V isits Requested Visits Authorized [id number] Closed Consult and Treat 03/13/2024 09/09/2024 1 1 [facility] Summary Purpose Family History No Family History Records FoundNo Family History Records Found Advance Directives No Advanced Directives Records Found Advance Directive Response Recorded Date/ Time Advance Directives No November 03, 2023 2:39pm Advance Directive Response Recorded Date/ Time Advance Directives No November 03, 2023 1:39pm Chief Complaint and Reason for Visit Chief Complaint cough Reason for Visit Bronchitis Chief Complaint Admit Date cough November 03, 2023 2: 40pm Med refill January 18, 2024 11:59am Reason for Visit Admit Date Bronchitis November 03, 2023 2: 40pm Additional Source Comments REASON FOR VISIT (unrecogniz ed section and content) Reason Comments Follow-up Check up Cough Sick about a month a go, lingering cough (unrecognized sect ion and content) No Status Records FoundNo Status Records Found INFORMATION SOURCE (unrecogn ized section and content) DATE CREATED AUTHOR 07/07/2022 [facility] DATE CREATED AUTHOR 'S ORGANIZ ATION 05/15/2024 [facility] Care Teams (unrecognized sec tion and content) Team Status: Active Member Role Status Dates Kamron Taylor [facility] Primary Care Provider Acti ve Team Status: Inactive Member Role Status Dates Kamron Taylor [facility] Primary Care Provider Acti ve Start: November 03, 2023 End: November 03, 2023 Heather Young APRN Attending Provider Active Start: November 03, 2023 End: November 03, 2023 Team Status: Inactive Member Role Status Dates Kamron Taylor [facility] Primary Care Provider Acti ve Start: January 18, 2024 End: January 18, 2024 Heather Young APRN Attending Provider Active Start: January 18, 2024 End: January 18, 2024 Tobacco Sweeper Relationship Specialty Start Date End Date Phill Traylor MD [address] [place] [address] PCP - General Family Medicine 03/13/24 Zuly Beckford NP [address] [place] [address] Nurse Practitioner Family Medicine 03/13/24 Tobacco Sweeper Relationship Specialty Start Date End Date Phill Traylor MD [address] [place] [address] PCP - General Family Medicine 03/13/24 Zuly Beckford NP [address] [place] [address] Nurse Practitioner Family Medicine 03/13/24 Mariangel Wen NP [address] [place] [address] Nurse Practitioner Family Medicine 03/13/24 Tobacco Sweeper Relationship Specialty Start Date End Date Phill Traylor MD [address] [place] [address] PCP - General Family Medicine 03/13/24 Zuly Beckford NP [address] [place] [address] Nurse Practitioner Family Medicine 03/13/24 Mariangel Wen NP [address] [place] [address] Nurse Practitioner Family Medicine 03/13/24 Tobacco Sweeper Relationship Specialty Start Date End Date Phill Traylor MD [address] [place] [address] PCP - General Family Medicine 03/13/24 Zuly Beckford NP [address] [place] [address] Nurse Practitioner Family Medicine 03/13/24 Mariangel Wen NP [address] [place] [address] Nurse Practitioner Family Medicine 03/13/24 Tobacco Sweeper Relationship Specialty Start Date End Date Phill Traylor MD [address] [place] [address] PCP - General Family Medicine 03/13/24 Zuly Beckford NP [address] [place] [address] Nurse Practitioner Family Medicine 03/13/24 Mariangel Wen NP [address] [place] [address] Nurse Practitioner Family Medicine 03/13/24 Tobacco Sweeper Relationship Specialty Start Date End Date Phill Traylor MD [address] [place] [address] PCP - General Family Medicine 03/13/24 Zuly Beckford NP [address] [place] [address] Nurse Practitioner Family Medicine 03/13/24 Mariangel Wen NP [address] [place] [address] Nurse Practitioner Family Medicine 03/13/24 Tobacco Sweeper Relationship Specialty Start Date End Date Phill Traylor MD [address] [place] [address] PCP - General Family Medicine 03/13/24 Zuly Beckford NP [address] [place] [address] Nurse Practitioner Family Medicine 03/13/24 Mariangel Wen NP [address] [place] [address] Nurse Practitioner Family Medicine 03/13/24 Tobacco Sweeper Relationship Specialty Start Date End Date Phill Traylor MD [address] [place] [address] PCP - General Family Medicine 03/13/24 Zuly Beckford NP [address] [place] [address] Nurse Practitioner Family Medicine 03/13/24 Mariangel Wen NP [address] [place] [address] Nurse Practitioner Family Medicine 03/13/24 Tobacco Sweeper Relationship Specialty Start Date End Date Phill Traylor MD [address] [place] [address] PCP - General Family Medicine 03/13/24 Zuly Beckford NP [address] [place] [address] Nurse Practitioner Family Medicine 03/13/24 Mariangel Wen NP [address] [place] [address] Nurse Practitioner Family Medicine 03/13/24 Tobacco Sweeper Relationship Specialty Start Date End Date Phill Traylor MD [address] [place] [address] PCP - General Family Medicine 03/13/24 Zuly Beckford NP [address] [place] [address] Nurse Practitioner Family Medicine 03/13/24 Mariangel Wen NP [address] [place] [address] Nurse Practitioner Family Medicine 03/13/24 Tobacco Sweeper Relationship Specialty Start Date End Date Phill Traylor MD [address] [place] [address] PCP - General Family Medicine 03/13/24 Zuly Beckford NP [address] [place] [address] Nurse Practitioner Family Medicine 03/13/24 Mariangel Wen NP [address] [place] [address] Nurse Practitioner Family Medicine 03/13/24 Tobacco Sweeper Relationship Specialty Start Date End Date Phill Traylor MD [address] [place] [address] PCP - General Family Medicine 03/13/24 Zuly Beckford NP [address] [place] [address] Nurse Practitioner Family Medicine 03/13/24 Mariangel Wen NP [address] [place] [address] Nurse Practitioner Family Medicine 03/13/24 Tobacco Sweeper Relationship Specialty Start Date End Date Phill Traylor MD [address] [place] [address] PCP - General Family Medicine 03/13/24 Zuly Beckford NP [address] [place] [address] Nurse Practitioner Family Medicine 03/13/24 Mariangel Wen NP [address] [place] [address] Nurse Practitioner Family Medicine 03/13/24 Tobacco Sweeper Relationship Specialty Start Date End Date Phill Traylor MD [address] [place] [address] PCP - General Family Medicine 03/13/24 Zuly Beckford NP [address] [place] [address] Nurse Practitioner Family Medicine 03/13/24 Mariangel Wen NP [address] [place] [address] Nurse Practitioner Family Medicine 03/13/24 Tobacco Sweeper Relationship Specialty Start Date End Date Phill Traylor MD [address] [place] [address] PCP - General Family Medicine 03/13/24 Zuly Beckford NP [address] [place] [address] Nurse Practitioner Family Medicine 03/13/24 Mariangel Wen NP [address] [place] [address] Nurse Practitioner Family Medicine 03/13/24 Tobacco Sweeper Relationship Specialty Start Date End Date Phill Traylor MD [address] [place] [address] PCP - General Family Medicine 03/13/24 Zuly Beckford NP [address] [place] [address] Nurse Practitioner Family Medicine 03/13/24 Mariangel Wen NP [address] [place] [address] Nurse Practitioner Family Medicine 03/13/24 Tobacco Sweeper Relationship Specialty Start Date End Date Phill Traylor MD [address] [place] [address] PCP - General Family Medicine 03/13/24 Zuly Beckford NP [address] [place] [address] Nurse Practitioner Family Medicine 03/13/24 Mariangel Wen NP [address] [place] [address] Nurse Practitioner Family Medicine 03/13/24 Cathie Higgins DO [address] [place] [address] Referring Physician Neurology 05/06/24 Tobacco Sweeper Relationship Specialty Start Date End Date Phill Traylor MD [address] [place] [address] PCP - General Family Medicine 03/13/24 Zuly Beckford NP [address] [place] [address] Nurse Practitioner Family Medicine 03/13/24 Mariangel Wen NP [address] [place] [address] Nurse Practitioner Family Medicine 03/13/24 Cathie Higgins DO [address] [place] [id number] Referring Physician Neurology 05/06/24 Tobacco Sweeper Relationship Specialty Start Date End Date Phill Traylor MD [address] [place] [address] PCP - General Family Medicine 03/13/24 Zuly Beckford NP [address] [place] [address] Nurse Practitioner Family Medicine 03/13/24 Mariangel Wen NP [address] [place] [address] Nurse Practitioner Family Medicine 03/13/24 Cathie Higgins DO [address] [place] [address] Referring Physician Neurology 05/06/24 Goals (unrecognized section and content) Goals may be documented in a n alternate section FOR RECORDS PERTAINING TO PATIENTS WHO ARE OR HAVE BEEN ENROLLED IN A CHEMICAL DEPENDENCY/SUBSTANCEABUSE PROGRAM, SOME INFORMATION MAY BE OMITTED. This clinical summary was aggregated from multiple sources. Caution should be exercised in using it in the provision of clinical care. This summary normalizes information from multiple sources, and as a consequence, information in this document may materially change the coding, format and clinical context of patient data. In addition, data may be omitted in some cases. CLINICAL DECISIONS SHOULD BE BASED ON THE PRIMARY CLINICAL RECORDS. [facility]. provides no warranty or guarantee of the accuracy or completeness of information in this document.
== END 2024-05-26 08:47 | disposition home or self-care (01) ==
LOC: SLEEP 08:46
PROVIDERS: PCP Psychiatry & Neurology Neurology; Visit Provider Psychiatry & Neurology Neurology
DX: G47.33 Obstructive sleep apnea (adult) (pediatric) (principal)
CPT/HCPCS: 95810

== ENCOUNTER 2024-07-14 09:46 | Outpatient (OUT) | payer OTHER, SELFPAY ==
--- OUTSIDE RECORDS SUMMARY | 2024-07-14 10:06 | XMS_ITS | CCD ---
Author Organization [facility] Care Team Providers Care Organ Pipe Voicer Name Role Phone Angie Rodriguez Unavailable SHAIKH Umer ZARCO Attending Unavailable SHAIKH Umer ZARCO Primary Care Unavailable SHAIKH Umer ZARCO Admitting Unavailable DR JULIO CESAR GARNER V Consulting Unavailable SHAIKH Umer ZARCO Consulting Unavailable Phill Traylor MD Primary Care Provider Beckford FUNDRAISING CONSULTANT, Zuly Unavailable [phone] Bettye FUNDRAISING CONSULTANT, Mariangel Unavailable Beckford FUNDRAISING CONSULTANT, Zuly Unavailable Cathie Higgins DO Unavailable KEV BUI Attending Unavailable BECFKORD, ZULY Referring Unavailabl e BRKEV WELDON Attending Unavailable BECKFORD, ZULY Referring Unavailabl e KEV BUI Attending Unavailable BECKFORD, ZULY Referring Unavailabl e KEV BUI Attending Unavailable BECKFORD, ZULY Referring Unavailabl e KEV BUI Attending Unavailable BECKFORD, ZULY Referring Unavailabl e KEV BUI Attending Unavailable BECKFORD, ZULY Referring Unavailabl e BECKFORD, ZULY Attending Unavailabl e SADIQ TABARES Attending Unavailable BECKFORD, ZULY Referring Unavailabl e CATHIE HIGGINS Attending Unavailable BECKFORD, ZULY Referring Unavailabl e CHITO CALDERON Attending Unavailable BECKFORD, ZULY Referring Unavailabl e KEV BUI Attending Unavailable BECKFORD, ZULY Referring Unavailabl e KENNY FITCH Attending Unavailable Allergies Allergy Classification Reported Allergen(s) Allergy Type Date of Onset Reaction(s) Facility (20 sources) Cefaclor Drug Allergy 5 unknown [facility] Other (20 sources) Amoxicillin Drug Allergy 5 [facility] (20 sources) Azithromycin Drug Allergy 5 [facility] Medications Current Medications Medication Drug Class(es) Dates Sig (Normalized) Sig (Original) Marston (No Known Home Meds) (1 source) Start: 01-18-2024 Marston (No Known Home Meds) Active January 18, [...] chronic] 11-03-2023 Episodic Other lower respiratory disease (2 sources) Snoring; Translations: [Snoring] 05-06-2024 Episodic Other nervous system disorders (4 sources) Circadian rhythm sleep disorder of shift work type; Translations: [Circadian rhythm sleep disorder, shift work type] 05-06-2024 Chronic Other upper respiratory disease (20 sources) Seasonal allergy; Translations: [Other seasonal allergic rhinitis] Onset: 03-13-2024 03-13-2024 Chronic Residual codes; unclassified (6 sources) Obstructive sleep apnea syndrome; Translations: [Obstructive sleep apnea (adult) (pediatric)] 05-06-2024 Chronic Residual codes; unclassified (2 sources) Hypersomnia; Translations: [Hypersomnia, unspecified] 05-06-2024 Chronic Residual codes; unclassified (4 sources) Sleep deprivation; Translations: [Sleep deprivation] 05-06-2024 Episodic Spondylosis; intervertebral disc disorders; other back problems (1 source) Spondylosis without myelopathy or radiculopathy, lumbar region; Translations: [SPONDYLS W/O MYELO-/RADICULOP LUMB] Onset: 07-06-2022 Chronic Unclassified (3 sources) LOW BACK PAIN, UNSPECIFIED; Translations: [LOW BACK PAIN, UNSPECIFIED] Onset: 07-06-2022 Viral infection (1 source) Genital herpes simplex; Translations: [Herpesviral infection of urogenital system, unspecified] 01-18-2024 Chronic Past or Other Problems Problem Classification Problem Date Documented Da te Episodic/Chronic Other lower respiratory disease (20 sources) Apnea; Translations: [Apnea, not elsewhere classified] Onset: 03-13-2024 03-13-2024 Episodic Residual codes; unclassified (1 source) High risk heterosexual behavior Onset: 03-06-2021 Resolved: 03-06-2021 Episodic Spondylosis; intervertebral disc disorders; other back problems (20 sources) Low back pain; Translations: [Lumbar back pain] Onset: 03-13-2024 03-13-2024 Episodic Unclassified (1 source) LOW BACK PAIN, UNSPECIFIED; Translations: [LOW BACK PAIN, UNSPECIFIED] Onset: 06-30-2022 Viral infection (1 source) Herpesviral infection, unspecified Onset: 03-06-2021 Resolved: 03-06-2021 Episodic Results Test Name Value Interpretation Reference Range Facil ity ALL CBC WITH AUTO DIFFon BASOPHILS ABSOLUTE AUTO 0 [facility] Basophils/100 WBC (Bld) 0.3 % 0.2 - 2.0 % [facility] Eosinophils/100 WBC (Bld) 2.8 % 0.9 - 7.0 % [facility] Erythrocyte distribution width (RBC) [Ratio] 12.6 % 11.0 - 15.0 % [facility] Hematocrit (Bld) [Volume fraction] 46.2 % 42.0 - 54.0 % [facility] Healthcar e Hemoglobin (Bld) [Mass/Vol] 15.7 g/dL 14.0 - 18.0 g/dL [facility] IMMATURE GRANULOCYTES ABS AUTO 0.03 [facility] Immature granulocytes/100 WBC (Bld) 0.5 % 0.0 - 0.5 % [facility] LYMPHOCYTES ABSOLUTE AUTO 2.4 [facility] Lymphocytes/100 WBC (Bld) 39.7 % 20.5 - 60.0 % [facility] MCH (RBC) [Entitic mass] 30.1 pg 25.9 - 34.[address] [facility] MCHC (RBC) [Mass/Vol] 34 g/dL 29.9 - 35.2 g/dL [facility] MCV (RBC) [Entitic vol] 88.7 fL 80.0 - 94.[address] [facility] MONOCYTES ABSOLUTE AUTO 0.5 [facility] Monocytes/100 WBC (Bld) 8.3 % 1.7 - 12.0 % [facility] NEUTROPHILS ABSOLUTE AUTO 2.9 [facility] Neutrophils/100 WBC (Bld) 48.4 % 43.0 - 75.0 % [facility] Platelet mean volume (Bld) [Entitic vol] 10.2 fL 9.5 - 13.[address] [facility] TBH EO # 0.2 [facility] Healthcar e TBH PLT 218 [facility] RBC 5.21 [facility] WBC 6 [facility] Health[facility] e XR LSPINE 2_3 VIEWSon 2022 [...] JULIO CESAR GARNER Date: 2022-06-30 11:26 Normal [facility] Vital Signs Date Time Vital Sign Value Performing Clinician Facility 07-08-2024 09:00-0400 Body height 167.6 cm Kenny Fitch NP Work Phone: [facility] 07-08-2024 09:00-0400 Body mass index (BMI) [Ratio] 25.66 kg/m2 Kenny Gillmor FUNDRAISING CONSULTANT Work Phone: [facility] 07-08-2024 09:00-0400 Body weight 72.12 kg Kenny Gillmor FUNDRAISING CONSULTANT Work Phone: [facility] 07-08-2024 09:00-0400 Diastolic blood pressure 82 mm[Hg] Kenny Gillmor FUNDRAISING CONSULTANT Work Phone: [facility] 07-08-2024 09:00-0400 Heart rate 77 /min Kenny Gillmor FUNDRAISING CONSULTANT Work Phone: [facility] 07-08-2024 09:00-0400 Respiratory rate 16 /min Kenny Gillmor FUNDRAISING CONSULTANT Work Phone: [facility] 07-08-2024 09:00-0400 SaO2% (BldA) [Mass fraction] 99 % Kenny Enriquetamor FUNDRAISING CONSULTANT Work Phone: [facility] 07-08-2024 09:00-0400 Systolic blood pressure 122 mm[Hg] Kenny Gillmor FUNDRAISING CONSULTANT Work Phone: [facility] 05-06-2024 08:53-0500 Body height 167.6 cm Cathie Sloan DO Work Phone: [facility] 05-06-2024 08:53-0500 Body mass index (BMI) [Ratio] 25.66 kg/m2 Cathie Sloan DO Work Phone: [facility] 05-06-2024 08:53-0500 Body weight 72.12 kg Cathie Sloan DO Work Phone: [facility] 05-06-2024 08:53-0500 Diastolic blood pressure 86 mm[Hg] Cathie Sloan DO Work Phone: [facility] 05-06-2024 08:53-0500 Systolic blood pressure 128 mm[Hg] Cathie Sloan DO Work Phone: [facility] 03-13-2024 09:20-0500 Body height 167.6 cm Zuly Beckford FUNDRAISING CONSULTANT Work Phone: [facility] 03-13-2024 09:20-0500 Body mass index (BMI) [Ratio] 25.34 kg/m2 Zuly Beckford FUNDRAISING CONSULTANT Work Phone: [facility] 03-13-2024 09:20-0500 Body temperature 97.11 [degF] Zuly Beckford FUNDRAISING CONSULTANT Work Phone: [facility] 03-13-2024 09:20-0500 Body weight 71.22 kg Zuly Beckford FUNDRAISING CONSULTANT Work Phone: [facility] 03-13-2024 09:20-0500 Diastolic blood pressure 60 mm[Hg] Zuly Beckford FUNDRAISING CONSULTANT Work Phone: [facility] 03-13-2024 09:20-0500 Heart rate 71 /min Zuly Beckford FUNDRAISING CONSULTANT Work Phone: [facility] 03-13-2024 09:20-0500 Respiratory rate 18 /min Zuly Beckford FUNDRAISING CONSULTANT Work Phone: [facility] 03-13-2024 09:20-0500 SaO2% (BldA) [Mass fraction] 97 % Zuly Beckford FUNDRAISING CONSULTANT Work Phone: [facility] 03-13-2024 09:20-0500 Systolic blood pressure 112 mm[Hg] Zuly Beckford FUNDRAISING CONSULTANT Work Phone: [facility] 01-18-2024 12:04-0500 Body height 167.64 cm [facility] 01-18-2024 12:04-0500 Body mass index (BMI) [Ratio] 34 kg/m2 [facility] 01-18-2024 12:04-0500 Body temperature 97.6 [degF] [facility] 01-18-2024 12:04-0500 Body weight 95.7 kg [facility] 01-18-2024 12:04-0500 Diastolic blood pressure 53 mm[Hg] [facility] 01-18-2024 12:04-0500 Heart rate 66 /min [facility] 01-18-2024 12:04-0500 Respiratory rate 18 /min [facility] 01-18-2024 12:04-0500 SaO2% (BldA) [Mass fraction] 99 % [facility] 01-18-2024 12:04-0500 Systolic blood pressure 114 mm[Hg] [facility] 11-03-2023 14:45-0400 Body height 167.64 cm [facility] 11-03-2023 14:45-0400 Body mass index (BMI) [Ratio] 25 kg/m2 [facility] 11-03-2023 14:45-0400 Body temperature 97.7 [degF] [facility] 11-03-2023 14:45-0400 Body weight 70.36 kg [facility] 11-03-2023 14:45-0400 Diastolic blood pressure 64 mm[Hg] [facility] 11-03-2023 14:45-0400 Heart rate 87 /min [facility] 11-03-2023 14:45-0400 Respiratory rate 18 /min [facility] 11-03-2023 14:45-0400 SaO2% (BldA) [Mass fraction] 96 % [facility] 11-03-2023 14:45-0400 Systolic blood pressure 100 mm[Hg] [facility] 03-06-2021 10:15-0500 Body height 167.64 cm Angie Michael Other [facility] Other 03-06-2021 10:15-0500 Body mass index (BMI) [Ratio] 23.43 kg/m2 Angie Rodriguez Other [facility] Other 03-06-2021 10:15-0500 Body temperature 98.2 [degF] Angie Rodriguez Other [facility] Other 03-06-2021 10:15-0500 Body weight 65.86 kg Angie Rodriguez Other [facility] Other 03-06-2021 10:15-0500 Diastolic blood pressure 62 mm[Hg] Angie Rodriguez Other [facility] Other 03-06-2021 10:15-0500 Respiratory rate 18 /min Angie Rodriguez Other [facility] Other 03-06-2021 10:15-0500 SaO2% (BldA) [Mass fraction] 98 % Angie Rodriguez Other [facility] Other 03-06-2021 10:15-0500 Systolic blood pressure 113 mm[Hg] Angie Rodriguez Other [facility] Other Encounters Encounter Date Encounter Type Care Provider Facility Start: 07-08-2024 End: 07-08-2024 Bamboo flowsheet Kenny Fitch FUNDRAISING CONSULTANT Work Phone: [facility] Start: 07-08-2024 End: 07-08-2024 Bamboo flowsheet Kenny Fitch FUNDRAISING CONSULTANT Work Phone: [facility] Start: 07-08-2024 End: 07-08-2024 Office outpatient visit 25 minutes Kenny Fitch FUNDRAISING CONSULTANT Work Phone: [facility] Comment on above: SANDRA (obstructive sle ep apnea) (Primary Dx); Shift work sleep disorder; Sleep deprivation Start: 07-08-2024 End: 07-08-2024 ambulatory KENNY FITCH Not Available Start: 05-13-2024 End: 05-13-2024 ambulatory KEV BUI Not Available Start: 05-07-2024 End: 05-07-2024 ambulatory Chito Calderon RESTAURANT ASSOCIATE [facility] Comment on above: Lumbar [...] 05-05-2024 End: 05-05-2024 Bamboo flowsheet Kev Brink RESTAURANT ASSOCIATE [facility] Start: 05-05-2024 End: 05-05-2024 Bamboo flowsheet Kev Brink RESTAURANT ASSOCIATE [facility] Start: 05-05-2024 End: 05-05-2024 ambulatory KEV BRINK Not Available Start: 04-29-2024 End: 04-29-2024 Bamboo flowsheet Kev Brink RESTAURANT ASSOCIATE [facility] Start: 04-29-2024 End: 04-29-2024 Bamboo flowsheet Kev Brink RESTAURANT ASSOCIATE [facility] Start: 04-29-2024 End: 04-29-2024 ambulatory Kev Brink RESTAURANT ASSOCIATE [facility] Comment on above: Lumbar back pain (Pr imary Dx); Lumbar paraspinal muscle spasm Start: 04-22-2024 End: 04-22-2024 Bamboo flowsheet Kev Brink RESTAURANT ASSOCIATE [facility] Start: 04-22-2024 End: 04-22-2024 Bamboo flowsheet Kev Brink RESTAURANT ASSOCIATE [facility] Start: 04-22-2024 End: 04-22-2024 ambulatory Kev Brink RESTAURANT ASSOCIATE [facility] Comment on above: Lumbar back pain (Pr imary Dx); Lumbar paraspinal muscle spasm Start: 2024 End: 2024 Bamboo flowsheet Kev Brink RESTAURANT ASSOCIATE [facility] Start: 2024 End: 2024 Bamboo flowsheet Kev Brink RESTAURANT ASSOCIATE [facility] Start: 2024 End: 2024 ambulatory Kev Bui RESTAURANT ASSOCIATE [facility] Comment on above: Lumbar back pain (Pr imary Dx); Lumbar paraspinal muscle spasm Start: 04-08-2024 End: 04-08-2024 Bamboo flowsheet Kev Brink RESTAURANT ASSOCIATE [facility] Start: 04-08-2024 End: 04-08-2024 Bamboo flowsheet Kev Brink RESTAURANT ASSOCIATE [facility] Start: 04-08-2024 End: 04-08-2024 ambulatory Kev Brink RESTAURANT ASSOCIATE [facility] Comment on above: Lumbar back pain (Pr imary Dx); Lumbar paraspinal muscle spasm Start: 04-01-2024 End: 04-01-2024 Bamboo flowsheet Kev Bui RESTAURANT ASSOCIATE [facility] Start: 04-01-2024 End: 04-01-2024 Bamboo flowsheet Kev Bui RESTAURANT ASSOCIATE [facility] Start: 04-01-2024 End: 04-01-2024 ambulatory Kev Bui RESTAURANT ASSOCIATE [facility] Comment on above: Lumbar back pain (Pr imary Dx); Lumbar paraspinal muscle spasm Start: 03-20-2024 End: 03-20-2024 [facility] Result Encounter Zuly Beckford FUNDRAISING CONSULTANT Work Phone: [facility] Unsolicited Start: 03-20-2024 End: 03-20-2024 [facility] Result Encounter Zuly Beckford FUNDRAISING CONSULTANT Work Phone: [facility] Unsolicited Start: [...] 03-13-2024 End: 03-13-2024 Bamboo flowsheet Zuly Beckford FUNDRAISING CONSULTANT Work Phone: [facility] Start: 03-13-2024 End: 03-13-2024 Bamboo flowsheet Zuly Rochapatrick FUNDRAISING CONSULTANT Work Phone: [facility] Start: 03-13-2024 End: 03-13-2024 ambulatory ZULY BECKFORD Not Available Start: 03-13-2024 End: 03-13-2024 Patient encounter status Zuly Beckford FUNDRAISING CONSULTANT Work Phone: [facility] Start: 03-13-2024 End: 03-13-2024 Periodic preventive med est patient 40-64yrs Zuly Beckford FUNDRAISING CONSULTANT Work Phone: [facility] Comment on above: Wellness examination (Primary Dx); Lumbar back pain; Apnea Start: 01-18-2024 End: 01-18-2024 ambulatory [facility] Work Phone: Start: 01-18-2024 End: 01-18-2024 Patient encounter procedure [facility] [place] Work Phone: Start: 11-03-2023 End: 11-03-2023 ambulatory [facility] Work Phone: Start: 11-03-2023 End: 11-03-2023 Patient encounter procedure [facility] [place] Work Phone: Start: 06-30-2022 End: 07-01-2022 ambulatory SHAIKH Umer ZARCO Facility: Start: 03-06-2021 End: 03-06-2021 ambulatory Angie Rodriguez Other [facility] Other Start: 03-06-2021 Office outpatient vi sit 15 minutes Angie Rodriguez [facility] [place] Procedures Date Procedure Procedure Detail Performing Clinician Start: 03-20-2024 ALL CBC WITH AUTO DIFF Zuly Beckford FUNDRAISING CONSULTANT Work Phone: Plan of Treatment Date Care Activity Detail Author Start: 11-03-2024 Influenza vaccination Influenz a Vaccine (Season Ended) [facility] Start: 10-09-2024 End: 10-09-2024 Patient encounter procedure 10/09/2024 8:40 AM EDT Office Visit [facility] [address] [place] [phone] Kenny Fitch NP [address] [place] [address] [facility] Start: 09-10-2024 End: 09-10-2024 Patient encounter procedure 09/10/2024 9:00 AM EDT Office Visit [facility] [address] [place] [phone] Mariangel Wen NP [address] [place] [address] [facility] Start: 07-08-2024 End: 07-08-2024 Patient encounter procedure [facility] Comment on above: Arrived Start: 05-13-2024 End: 05-13-2024 ambulatory 05/13/2024 8:30 AM EDT Treatment [facility] [address] [place] [address] Kev Bui, JOSHUA [facility] Start: 05-07-2024 End: 05-07-2024 ambulatory [facility] Start: 05-06-2024 End: 05-06-2025 [facility]ys[facility]ography [facility] Routine SANDRA (obstructive sleep apnea) Expected: 05/06/2024 (Approximate), Expires: 05/06/2025 [facility] Work Phone: Comment on above: Expected: 05/06/2024 (Approximate), Expires: 05/06/2025 Start: 05-06-2024 End: 05-06-2024 Patient encounter procedure [facility] Comment on above: Apnea Start: 05-05-2024 End: 05-05-2024 ambulatory [facility] Start: 04-29-2024 End: 04-29-2024 ambulatory 04/29/2024 8:30 AM EST Treatment [facility] [address] [place] [address] Kev Bui RESTAURANT ASSOCIATE [facility] Start: 04-22-2024 End: 04-22-2024 ambulatory 04/22/2024 8:30 AM EST Treatment [facility] [address] [place] [address] Kev Bui RESTAURANT ASSOCIATE [facility] Start: 2024 End: 2024 ambulatory 2024 8:30 AM EST Treatment [facility] [address] [place] [address] Sadiq Tabares, PT [address] [place] [address] [facility] Start: 04-08-2024 End: 04-08-2024 ambulatory 04/08/2024 8:30 AM EST Treatment [facility] [address] [place] [address] Kev Bui RESTAURANT ASSOCIATE [facility] Start: 03-19-2024 End: 03-19-2024 ambulatory 03/19/2024 8:30 AM EST Evaluation [facility] [address] [place] [address] Sadiq Tabares, PT [address] [place] [address] [facility] Start: 03-13-2024 End: 03-13-2025 CBC W Auto Differential panel - Blood CBC and differential Lab Routine Wellness examination Expected: 03/13/2024 (Approximate), Expires: 03/13/2025 [facility] Comment on above: Expected: 03/13/2024 (Approximate), Expires: 03/13/2025 Start: 03-13-2024 End: 03-13-2025 Comprehensive metabolic 2000 panel - Serum or Plasma Comprehensive metabolic panel Lab Routine Wellness examination Expected: 03/13/2024 (Approximate), Expires: 03/13/2025 [facility] Comment on above: Expected: 03/13/2024 (Approximate), Expires: 03/13/2025 Start: 03-13-2024 End: 03-13-2025 Hemoglobin A1c/Hemoglobin.total in Blood Hemoglobin A1c Lab Routine Wellness examination Expected: 03/13/2024 (Approximate), Expires: 03/13/2025 [facility] Comment on above: Expected: 03/13/2024 (Approximate), Expires: 03/13/2025 Start: 03-13-2024 End: 03-13-2025 Lipid 1996 panel - Serum or Plasma Lipid panel Lab Routine Wellness examination Expected: 03/13/2024 (Approximate), Expires: 03/13/2025 [facility] Comment on above: Expected: 03/13/2024 (Approximate), Expires: 03/13/2025 Start: 03-13-2024 End: 03-13-2025 TSH W/REFLEX TO FT4 TSH W/REFLEX TO FT4 Lab Routine Wellness examination Expected: 03/13/2024 (Approximate), Expires: 03/13/2025 [facility] Work Phone: Comment on above: Expected: 03/13/2024 (Approximate), Expires: 03/13/2025 Start: 11-04-2023 Influenza vaccination Influenza Vacc ine (#1) [facility] Payers Date Payer Category Payer Private Health Insurance [id number] 1985 Unknown [id number] 2.16.84 [id number] 1983 Unknown [id number] 2.16.84 [id number] 1983 Unknown [id number] 2.16.84 0.1.032699.3.579.2.9 1983 Unknown [id number] 2.16.84 0.1.513347.3.579.2.9 1983 Unknown [id number] 2.16.84 0.1.335646.3.579.2.9 1983 Unknown [id number] 2.16.84 0.1.413540.3.579.2.9 1983 Unknown [id number] 2.16.84 0.1.724941.3.579.2.9 1983 Unknown [id number] 2.16.84 0.1.019033.3.579.2.9 1983 Unknown [id number] 2.16.84 0.1.709149.3.579.2.9 1983 Unknown [id number] 2.16.84 0.1.929058.3.579.2.9 1983 Unknown [id number] 2.16.84 0.1.744679.3.579.2.9 1983 Unknown [id number] 2.16.84 0.1.299270.3.579.2.9 1983 Unknown [id number] 2.16.84 [id number] 1959 Unknown [id number] Unknown [id number] 2. [id number] Social History Date Type Detail Facility Sex Assigned At [facility] Other Start: 1985 Sex Assigned At Male F [facility] Start: 01-18-2024 Sex Male (finding) [facility] Start: 1985 Sex assigned at Not on file [facility] Clinical Notes 03-06-2021 to 05-06-2024 Cathie Higgins, DO - 05/06/2024 9:00 AM Robinson Beckford, FUNDRAISING CONSULTANT - 03/13/2024 9:32 AM Robinson Beckford, FUNDRAISING CONSULTANT - 03/13/2024 9:32 AM Robinson Beckford, FUNDRAISING CONSULTANT - 03/13/2024 9:00 AM EST Note Date & Type Note Facility 05-06-2024 History of Presen t illness Narrative Images from the original note were not included. No chief complaint on file. Subjective Noé Ball, 39 y.o., male new patient here in neurological consultation at the request of Zuly Beckford CNP for sleep apnea. AALIYAH Umanzor states that his informed him that he [...] clinic: 2 months documented in this encounter [facility] 03-13-2024 History of Presen t [...] day. Consider tracking your food intake on [employer] or L[employer]It Water: Increase water intake; GOAL [...] referral to Neurology documented in this encounter [facility] 03-13-2024 Instructions Zuly Beckford NP - 03/13/2024 9:00 AM EST Referral sent to Dr. Higgins for Sleep Study- they will call you. If you don't hear from them in 2 weeks, call my office! FASTING labs ordered. Nothing to eat or drink for 12 hours prior to blood draw. Water and black coffee ok. documented in this encounter [facility] 11-03-2023 Evaluation note Diagnosis Onset Date Resolution Bronchitis acute November 02 024 2:40pm [facility] Work Phone: 1(905) 260-911701-02-2022 Evaluation note* Encounter Date Diagnosis Assessment Notes Treatment Notes Treatment Clinical Notes Mar, Herpes (ICD-10 - B00.9) Take medication as directed. Discussed follow up with primary care for blood work is best way to find out if positive for antibodies. Will test for other STI's just in case. Mar, High risk heterosexual behavior (ICD-10 - Z72.51) [facility] Other Evaluation note* Diagnosis Onset Date Resolution Status Bronchitis acute [facility] Work Phone: Evaluation note* Diagnosis Wellness examination- Primary Lumbar back pain Lumbago Apnea documented in this encounter [facility] HealthcareEvaluation note* Diagnosis Wellness examination- Primary Lumbar back pain Lumbago Apnea Lumbar paraspinal muscle spasm- Primary Other symptoms referable to back Lumbar back pain Lumbago documented in this encounter [facility] Healthcare[facility] note* Diagnosis Wellness examination- Primary Lumbar [...] examination- Primary Lumbar back pain Lumbago Apnea SANDRA (obstructive sleep apnea)- Primary Obstructive sleep apnea (adult) (pediatric) Shift work sleep disorder Circadian rhythm sleep disorder, shift work type Sleep deprivation Problems related to lack of adequate sleep documented [facility] this encounter [facility] - Reported* Type Description Date Surgical History tonsillectomy [facility] Other Reason for visit Narrative* Rehabilitation - Outpatient (Routine) - Pending Review Specialty Diagnoses / Procedures Referred By Tari massey Referred To Contact Physical Therapy Diagnoses Lumbar back pain Procedures SC OFFICE/OUTPATIENT NEW HIGH MDM 60 MINUTES Zuly Beckford, ASAD [address] [place] [phone] Phone: tel: fax: Sadiq Tabares, PT [address] [facility] [address] [place] [address] Phone: tel: fax: Referral ID Status Reason Start Date Expiration Date Visits Requested Visits Authorized [id number] Pending Review Specialty Services Required 03/19/2024 09/09/2024 1 2 [facility] Rehabilitation - Outpatient (Routine) - Authorized Specialty Diagnoses / Procedures Referred By Contac t Referred To Contact Physical Therapy Diagnoses Lumbar back pain Procedures SC OFFICE/OUTPATIENT NEW HIGH MDM 60 MINUTES Zuly Beckford, ASAD [address] [place] [address] Phone: tel: fax: Sadiq Tabares, PT [address] [address] [address] Phone: tel: fax: Referral ID Status Reason Start Date Expiration Date Visits Requested Visits Authorized [id number] Authorized Specialty Services Required 03/19/2024 05/17/2024 9 9 [facility]* Rehabilitation - Outpatient (Routine) - Authorized Specialty Diagnoses / Procedures Referred By Contac t Referred To Contact Physical Therapy Diagnoses Lumbar back pain Procedures SC OFFICE/OUTPATIENT NEW HIGH MDM 60 MINUTES Zuly Beckford NP [address] [place] [place] [address] fax: Sadiq Tabares, PT [address] [address] Phone: tel: fax: Referral ID Status Reason Start Date Expiration Date Visits Requested Visits Authorized [id number] Authorized Specialty Services Required 03/19/2024 05/17/2024 9 9 [facility] Narrative* Consultation (Routine) - Closed Specialty Diagnoses / Procedures Referred By Contac t Referred To Contact Neurology Diagnoses Apnea Procedures SC OFFICE/OUTPATIENT NEW HIGH MDM 60 MINUTES Zuly Beckford, ASAD [address] [place] [address] fax: Cathie Higgins [address] [place] [address] Phone: tel: fax: Referral ID Status Reason Start Date Expiration Date V isits Requested Visits Authorized [id number] Closed Consult and Treat 03/13/2024 09/09/2024 1 [...] about a month a go, lingering cough Reason Comments Snoring (unrecognized sect ion and content) No Status Records FoundNo Status Records Found INFORMATION SOURCE (unrecogn ized section and content) DATE CREATED AUTHOR 07/07/2022 [facility] DATE CREATED AUTHOR AUTHOR'S ORGANIZ ATION 07/11/2024 [facility] Care Teams (unrecognized sec tion and content) Team Status: Active Member Role Status Dates Kamron Taylor [facility] Primary Care Provider Acti ve Team Status: Inactive Member Role Status Dates Kamron Ro [facility] , [facility] Primary Care Provider Acti ve Start: November 03, 2023 End: November 03, 2023 Heather Young APRN Attending Provider Active Start: November 03, 2023 End: November 03, 2023 Team Status: Inactive Member Role Status Dates Kamron Ro [facility] , [facility] Primary Care Provider Acti ve Start: January 18, 2024 End: January 18, 2024 Heather Young APRN Attending Provider Active Start: January 18, 2024 End: January 18, 2024 [employer] Voicer Relationship Specialty Start Date End Date Phill Traylor MD [address] [place] [address] PCP - General Family Medicine 03/13/24 Zuly Beckford NP [address] [place] [address] Nurse Practitioner Family Medicine 03/13/24 [employer] Pipe Voicer Relationship Specialty Start Date End Date Phill Traylor MD [address] [place] [address] PCP - General Family Medicine 03/13/24 Zuly Beckford NP [address] [place] [address] Nurse Practitioner Family Medicine 03/13/24 Mariangel Wen NP [address] [place] [address] Nurse Practitioner Family Medicine 03/13/24 Organ Pipe Voicer Relationship Specialty Start Date End Date Phill Traylor MD [address] [place] [address] PCP - General Family Medicine 03/13/24 Zuly Beckford NP [address] [place] [address] Nurse Practitioner Family Medicine 03/13/24 Mariangel Wen NP [address] [place] [address] Nurse Practitioner Family Medicine 03/13/24 Organ Pipe Voicer Relationship Specialty Start Date End Date Phill Traylor MD [address] [place] [address] PCP - General Family Medicine 03/13/24 Zuly Beckford, ASAD [address] [place] [address] Nurse Practitioner Family Medicine 03/13/24 Mariangel Wen NP [address] [place] [address] Nurse Practitioner Family Medicine 03/13/24 Organ Pipe Voicer Relationship Specialty Start Date End Date Phill Traylor MD [address] [place] [address] PCP - General Family Medicine 03/13/24 Zuly Beckford NP [address] [place] [address] Nurse Practitioner Family Medicine 03/13/24 Mariangel Wen NP [address] [place] [address] Nurse Practitioner Family Medicine 03/13/24 Organ Pipe Voicer Relationship Specialty Start Date End Date Phill Traylor MD [address] [place] [address] PCP - General Family Medicine 03/13/24 Zuly Beckford NP [address] [place] [address] Nurse Practitioner Family Medicine 03/13/24 Mariangel Wen NP [address] [place] [address] Nurse Practitioner Family Medicine 03/13/24 Organ Pipe Voicer Relationship Specialty Start Date End Date Phill Traylor MD [address] [place] [address] PCP - General Family Medicine 03/13/24 Zuly Beckford NP [address] [place] [address] Nurse Practitioner Family Medicine 03/13/24 Mariangel Wen NP [address] [place] [address] Nurse Practitioner Family Medicine 03/13/24 Organ Pipe Voicer Relationship Specialty Start Date End Date Phill Traylor MD [address] [place] [address] PCP - General Family Medicine 03/13/24 Zuly Beckford NP [address] [place] [address] Nurse Practitioner Family Medicine 03/13/24 Mariangel Wen NP [address] [place] [address] Nurse Practitioner Family Medicine 03/13/24 Organ Pipe Voicer Relationship Specialty Start Date End Date Phill Traylor MD [address] [place] [address] PCP - General Family Medicine 03/13/24 Zuly Beckford, ASAD [address] [place] [address] Nurse Practitioner Family Medicine 03/13/24 Mariangel Wen NP [address] [place] [address] Nurse Practitioner Family Medicine 03/13/24 Organ Pipe Voicer Relationship Specialty Start Date End Date Phill Traylor MD [address] [place] [address] PCP - General Family Medicine 03/13/24 Zuly Beckford NP [address] [place] [address] Nurse Practitioner Family Medicine 03/13/24 Mariangel Wen NP [address] [place] [address] Nurse Practitioner Family Medicine 03/13/24 Organ Pipe Voicer Relationship Specialty Start Date End Date Phill Traylor MD [address] [place] [address] PCP - General Family Medicine 03/13/24 Zuly Beckford NP [address] [place] [address] Nurse Practitioner Family Medicine 03/13/24 Mariangel Wen NP [address] [place] [address] Nurse Practitioner Family Medicine 03/13/24 Organ Pipe Voicer Relationship Specialty Start Date End Date Phill Traylor MD [address] [place] [address] PCP - General Family Medicine 03/13/24 Zuly Beckford NP [address] [place] [address] Nurse Practitioner Family Medicine 03/13/24 Mariangel Wen NP [address] [place] [address] Nurse Practitioner Family Medicine 03/13/24 Organ Pipe Voicer Relationship Specialty Start Date End Date Phill Traylor MD [address] [place] [address] PCP - General Family Medicine 03/13/24 Zuly Beckford NP [address] [place] [address] Nurse Practitioner Family Medicine 03/13/24 Mariangel Wen NP [address] [place] [address] Nurse Practitioner Family Medicine 03/13/24 Organ Pipe Voicer Relationship Specialty Start Date End Date Phill Traylor MD [address] [place] [address] PCP - General Family Medicine 03/13/24 Zuly Beckford NP [address] [place] [address] Nurse Practitioner Family Medicine 03/13/24 Mariangel Wen NP [address] [place] [address] Nurse Practitioner Family Medicine 03/13/24 Organ Pipe Voicer Relationship Specialty Start Date End Date Phill Tarylor MD [address] [place] [address] PCP - General Family Medicine 03/13/24 Zuly Beckford NP [address] [place] [address] Nurse Practitioner Family Medicine 03/13/24 Mariangel Wen NP [address] [place] [address] Nurse Practitioner Family Medicine 03/13/24 Organ Pipe Voicer Relationship Specialty Start Date End Date Phill Traylor MD [address] [place] [address] PCP - General Family Medicine 03/13/24 Zuly Beckford NP [address] [place] [address] Nurse Practitioner Family Medicine 03/13/24 Mariangel Wen NP [address] [place] [address] Nurse Practitioner Family Medicine 03/13/24 Organ Pipe Voicer Relationship Specialty Start Date End Date Phill Traylor MD [address] [place] [address] PCP - General Family Medicine 03/13/24 Zuly Beckford NP [address] [place] [address] Nurse Practitioner Family Medicine 03/13/24 Mariangel Wen NP [address] [place] [address] Nurse Practitioner Family Medicine 03/13/24 Cathie Higgins DO [address] [place] [address] Referring Physician Neurology 05/06/24 Organ Pipe Voicer Relationship Specialty Start Date End Date Phill Traylor MD [address] [place] [address] PCP - General Family Medicine 03/13/24 Zuly Beckford NP [address] [place] [address] Nurse Practitioner Family Medicine 03/13/24 Mariangel Wen NP [address] [place] [address] Nurse Practitioner Family Medicine 03/13/24 Cathie Higgins DO [address] [place] [address] Referring Physician Neurology 05/06/24 Organ Pipe Voicer Relationship Specialty Start Date End Date Phill Traylor MD [address] [place] [address] PCP - General Family Medicine 03/13/24 Zuly Beckford NP [address] [place] [address] Nurse Practitioner Family Medicine 03/13/24 Mariangel Wen NP [address] [place] [address] Nurse Practitioner Family Medicine 03/13/24 Cathie Higgins DO [address] [place] [address] Referring Physician Neurology 05/06/24 Organ Pipe Voicer Relationship Specialty Start Date End Date Phill Traylor MD [address] [place] [address] PCP - General Family Medicine 03/13/24 Zuly Beckford NP [address] [place] [address] Nurse Practitioner Family Medicine 03/13/24 Mariangel Wen NP [address] [place] [address] Nurse Practitioner Family Medicine 03/13/24 Cathie Higgins DO [address] [place], [place] [address] Referring Physician Neurology 05/06/24 Organ Pipe Voicer Relationship Specialty Start Date End Date Phill Traylor MD [address] [place] [address] PCP - General Family Medicine 03/13/24 Zuly Beckford NP [address] [place] [address] Nurse Practitioner Family Medicine 03/13/24 Mariangel Wen NP [address] [place] [address] Nurse Practitioner Family Medicine 03/13/24 Cathie Higgins DO [address] [place] [address] Referring Physician Neurology 05/06/24 Goals (unrecognized section [...] BE BASED ON THE PRIMARY CLINICAL RECORDS. [employer] provides no warranty or guarantee of the accuracy or completeness of information in this document.
== END 2024-07-14 09:47 | disposition home or self-care (01) ==
LOC: SLEEP 09:46
PROVIDERS: PCP Psychiatry & Neurology Neurology; Visit Provider Psychiatry & Neurology Neurology
DX: G47.33 Obstructive sleep apnea (adult) (pediatric) (principal)
CPT/HCPCS: 95811